=== PATIENT | female | born 1965 | race Asian ===

== ENCOUNTER 2019-04-19 21:01 | Emergency (ER) | payer OTHER ==
[2019-04-19 21:06] VITALS: BP 157/78; PULSE 102; TEMP 98.4; BMI 32.0
[2019-04-19] MEDS ORDERED: DEXAMETHASONE LIQUID 0.5 MG/5 ML 240 ML BULK BOTTLE PO ONE (21:06)
--- NOTE | 2019-04-19 21:07 | PDOC ---
Rapid Medical Evaluation Time Seen by Provider: 04/19/19 21:04 Medical Evaluation: 04/19/19 21:04 HPI: Cough x2 months now with CP and headache on amoxicillin for cough PE: No distress, Decreased lung sounds at the L base otherwise clear; reproducable L sided CP ORDERS: CXR, Decadron 04/19/19 21:07 Discharge Disposition - Diagnosis Cough - Referrals - Patient Instructions - Post Discharge Activity
[2019-04-19] MEDS ORDERED: DEXAMETHASONE SOD PHOSPHATE 10 MG/1 ML VIAL ONE ×2 (21:33→21:57)
[2019-04-19] MEDS ORDERED: ALBUTEROL SO4 2.5/IPRATROPIUM 0.5 INH SOL 3 ML VIAL.NEB. NEB ONE (21:58)
--- NOTE | 2019-04-19 22:01 | PDOC ---
History of Present Illness - General Chief Complaint: Respiratory Stated Complaint: chest pain Time Seen by Provider: 04/19/19 21:04 History Source: Patient, Family Exam Limitations: No Limitations - History of Present Illness Initial Comments: 04/19/19 21:47 patient is here after lengthyupper respiratory illness. States has been attended to by Dr. Parson and given multiple rounds of different antibiotics with minimal resolved. States has continued persistent coughing. Has never seen a specialist. Is using [id number] medications with minimal resolved. Timing/Duration: reports: getting worse, intermittent Severity: reports: moderate, severe Associated Symptoms: reports: chest pain/soreness (primarily pleuritic), cough Past History - Travel Traveled outside of the country in the last 30 days: No Close contact w/someone who was outside of country & ill: No - Past Medical History Allergies/Adverse Reactions: Allergies Allergy/AdvReac Type Severity Reaction Status Date / Time No Known Allergies Allergy Verified 04/19/19 21:06 Home Medications: Ambulatory Orders Albuterol Sulfate Inhaler - [Ventolin HFA Inhaler -] 1 - 2 inh PO Q4H #1 inhaler 04/19/19 COPD: No Diabetes: Yes - Suicide/Smoking/Psychosocial Hx Smoking History: Never smoked Review of Systems - Review of Systems Able to Perform ROS?: Yes Is the patient limited Czech proficient: Yes Constitutional: Yes: Symptoms Reported, See HPI, Fever, Malaise HEENTM: Yes: Symptoms Reported, Nose Congestion Respiratory: Yes: Symptoms reported, See HPI, Cough Cardiac (ROS): No: Symptoms Reported Integumentary: Yes: Symptoms Reported Neurological: No: Symptoms reported *Physical Exam - Vital Signs Last Vital Signs Temp Pulse Resp BP Pulse Ox 98.4 F 102 H 20 157/78 99 04/19/19 21:03 04/19/19 21:03 04/19/19 21:03 04/19/19 21:03 04/19/19 21:03 - Physical Exam General Appearance: Yes: Nourished, Appropriately Dressed, Apparent Distress, Mild Distress HEENT: positive: EOMI, MENDEZ, Normal ENT Inspection, TMs Normal, Pharynx Normal Neck: positive: Tender, Supple Respiratory/Chest: positive: Chest Tender (mild pleuritic pain with deep inspiration ), Lungs Clear, Normal Breath Sounds Gastrointestinal/Abdominal: positive: Normal Bowel Sounds, Tender, Soft Musculoskeletal: positive: Normal Inspection Extremity: positive: Normal Capillary Refill, Normal Inspection. negative: Tender Integumentary: positive: Normal Color, Dry, Warm, Pale Neurologic: positive: machine turner II-XII NML intact, Fully Oriented, Alert, Normal Mood/ Affect ED Treatment Course - Medications Given in the ED: ED Medications Discontinued Medications Generic Name Dose Route Start Last Admin Trade Name Alma Delia PRN Reason Stop Dose Admin Dexamethasone 10 mg 04/19/19 21:06 04/19/19 21:35 Decadron Liquid - PO 04/19/19 21:07 10 mg ONCE ONE Administration Progress Note - Progress Note Progress Note: chest x-ray showsno changein 2 years including round lesion noted middle right upper lobe, continues to view approximately 1 centimeters2 in upper right lobe eupper respiratory infection, much improved after DuoNeb and Decadron administration.much better aeration and states feels better. We'll prescribe albuterol inhaler and have follow-up with PMD this week *DC/Admit/Observation/Transfer Diagnosis at time of Disposition: URI, acute - Discharge Dispostion Disposition: HOME Condition at time of disposition: Stable Decision to Admit order: No - Referrals Referrals: Moses Santos MD [Primary Care Provider] - - Patient Instructions Printed Discharge Instructions: DI for Viral Upper Respiratory Infection -- Adult Additional Instructions: Rest, drink lots of fluids: Teas, water, soups, Pedialyte Saltwater gargles Steamy showers/seem to face break up mucus Avoid contact with others until fevers and cough resolved Lots of handwashing and good hygiene Continue [id number] medications for symptomatic relief Tylenol or Motrin for fever and pain Continue albuterol inhalers every 4-6 hours for the next 2 days then as needed for continued cough You received 10 mg of Decadron in the emergency department for 1 time steroid Followup with private physician in one to 2 days Return to emergency department / pediatric hospital for worsened symptoms, fevers, dehydration - Post Discharge Activity
== END 2019-04-19 22:30 | disposition home or self-care (01) ==
LOC: JERFT 21:01
DX: J06.9 Acute upper respiratory infection, unspecified (principal)
CPT/HCPCS: 71046-TC-FY; 99281-25